=== PATIENT | male | born 1965 | race Caucasian/White ===

== ENCOUNTER 2019-06-18 10:13 | Outpatient (CLI) | payer OTHER, SELFPAY ==
--- NOTE | ~2019-06-18 | XR_ITS ---
EXAMINATION: XR chest 2V DATE: 06/18/2019 11:17 INDICATION: Shortness of breath TECHNIQUE: PA and lateral views of the chest were obtained. COMPARISON: None FINDINGS: Increased interstitial and airspace opacities in the bilateral lower lung zones. Small bilateral pleu ral effusions. No pneumothorax. Cardiomegaly. Mediastinal silhouette is normal. Mild thoracic spondyl osis. IMPRESSION: 1. Opacities in the bilateral lower lung zones most likely congestive heart failure related mild pulm onary edema with differential including less likely pneumonia. 2. Small bilateral pleural effusions. 3. Cardiomegaly. Reviewed, dictated and finalized at location A. IMPRESSION: 1. Opacities in the bilateral lower lung zones most likely congestive heart do lure related mild pulmonary edema with differential including less likely pneum onia. 2. Small bilateral pleural effusions. 3. Cardiomegaly.
--- NOTE | 2019-06-18 10:31 | ECG_ITS ---
Measurements Intervals [place] Rate: 109 P: 57 FL: 144 QRS: -39 QRSD: 97 T: 93 QT: 339 QTc: 457 Interpretive Statements SINUS TACHYCARDIA VENTRICULAR PREMATURE COMPLEX LEFT ATRIAL ENLARGEMENT LEFT AXIS DEVIATION CANNOT RULE OUT SEPTAL INFARCT, AGE INDETERMINATE BORDERLINE ST ABNORMALITY- LATERAL LEADS BASELINE ARTIFACT- II, III ABNORMAL ECG Electronically Signed On 06-18-2019 11:28:04 CDT by Glen Vila D.O.
[2019-06-18 10:36] LABS: Basophils Absolute Auto 0.1 K/mm3 (0.0-0.1); Basophils Percent Auto 0.6 % (0.2-1.2); Eosinophils Absolute Auto 0.2 K/mm3 (0-0.3); Eosinophils Percent Auto 1.6 % (0-4.4); Hematocrit 53.1 % (42.0-52.0); Hemoglobin 17.3 g/dL (14.0-18.0); Immature Granulocyte Absolute 0.03 K/mm3 (0.00-0.031); Immature Granulocyte Percent A 0.3 % (0-0.5); Lymphocytes Percent Auto 25.8 % (18.3-44.2); Mean Corpuscular HGB Conc 32.6 g/dl (32-36); Mean Corpuscular Hemoglobin 30.5 pg (26-34); Mean Corpuscular Volume 93.7 fl (80-100); Mean Platelet Volume 9.8 fl (7.4-10.4); Monocytes Absolute Auto 0.9 K/mm3 (0.1-0.6); Monocytes Percent Auto 8.4 % (2.6-8.5); Neutrophils Absolute Auto 6.4 K/mm3 (1.3-6.7); Neutrophils Percent Auto 63.3 % (45.5-73.1); Platelet Count Result 289 k/mm3 (150-375); Red Blood Count 5.67 M/mm3 (4.6-6.20); Red Cell Distribution Width 14.7 % (11.5-14.5); White Blood Count 10.1 K/mm3 (4.5-10.0)
[2019-06-18 10:50] LABS: Alanine Aminotransferase 43 U/L (4-50); Alkaline Phosphatase 104 U/L (38-126); Aspartate Amino Transferase 30 U/L (17-59); Bilirubin,Total 1.4 mg/dL (0.2-1.3); Blood Urea Nitrogen 13 mg/dL (9-20); Calcium 8.9 mg/dL (8.4-10.2); Carbon Dioxide 26 mmol/L (22-30); Chloride 106 mmol/L (98-107); Cholesterol 235 mg/dL (0-200); Estimated Glomerular Filt Rate > 60; Glucose 126 mg/dL (75-110); HDL Direct 34 mg/dL; Potassium 4.3 mmol/L (3.4-5.0); Sodium 138 mmol/L (137-145); Triglycerides 152 mg/dL (<150)
[2019-06-18 11:00] LABS: LDL Cholesterol Direct 179 mg/dL
[2019-06-18 11:19] LABS: Prostate Specific Antigen 0.6 ng/mL (< OR = 4.0)
== END 2019-06-18 10:14 | disposition home or self-care (01) ==
PROVIDERS: Visit Provider Nurse Practitioner
DX: Z13.220 Encounter for screening for lipoid disorders (principal); Z12.5 Encounter for screening for malignant neoplasm of prostate; Z13.29 Encounter for screening for other suspected endocrine disorder; R06.02 Shortness of breath; R94.31 Abnormal electrocardiogram [ECG] [EKG]; J90 Pleural effusion, not elsewhere classified; I51.7 Cardiomegaly
CPT/HCPCS: 36415; 71046; 80053; 80061; 84153; 85025; 93005; G0103

== ENCOUNTER 2019-06-25 09:38 | Outpatient (CLI) | payer OTHER, SELFPAY ==
--- NOTE | ~2019-06-25 | NM_ITS ---
EXAMINATION: NM susan stress w perfusion DATE: 06/25/2019 16:00 CDT INDICATION: Dyspnea. TECHNIQUE: Rest images were obtained following intravenous administration of 11 mCi Tc99m tetrofosmin (Myoview). The patient was infused intravenously with Lexiscan (regadenoson). Then, 31.4 mCi Tc99m t etrofosmin (Myoview) was administered intravenously, and stress images were obtained. Data was recons tructed into short axis and horizontal and vertical long axis SPECT images. Gated SPECT images were a lso obtained. COMPARISON: None. FINDINGS: There is no definite reversible or fixed perfusion abnormality to suggest ischemia or infar ction. There is globally decreased wall motion with left ventricular enlargement. Left ventricular ejection fraction measures 19%. IMPRESSION: 1. No definite ischemia or infarct. 2. There is globally decreased wall motion with left ventricular enlargement. Left ventricular eject ion fraction measures 19%. Reviewed, dictated and finalized at location A. IMPRESSION: 1. No definite ischemia or infarct. 2. There is globally decreased wall motion with left ventricular enlargement. Left ventricular ejection fraction measures 19%.
--- NOTE | 2019-06-25 10:57 | ECHO_ITS ---
Patient Info Name: Carson Barton Age: 54 years : 1965 Gender: Male Ht: 65 in Wt: 223 lbs BSA: 2.20 m2 HR: 85 bpm BP: 152 / 111 mmHg Technical Quality: Good Exam Date: 06/25/2019 12:57 PM Exam Location: [facility] Patient Status: Outpatient Admit Date: 06/25/2019 Staff Ordering Physician: Glen Vila DO Loss Prevention Consultant: Bharathi Stanton RDCS, RT Attending Provider: Glen Vila DO Referring Physician: Julito ANTHONY; Exam Type: CA echo dop color flow w con Study Info Indications R06.02 - Shortness of breath Complete two-dimensional, color flow and Doppler transthoracic echocardiogram is performed. Summary 1. Left ventricular chamber dimension is moderately enlarged. 2. Left ventricular systolic function is severely reduced, estimated at 20-25%. 3. There is mildly increased left ventricular wall thickness. 4. The left ventricular diastolic function is grade IV diastolic dysfunction. 5. E/e' 14 is mildly elevated. 6. Global longitudinal strain is abnormal at -5.8%. 7. Right ventricular chamber dimension is mildly enlarged. 8. Left atrial chamber dimension is mildly enlarged. 9. There is mild aortic valve sclerosis. 10. There is mild mitral valve regurgitation. 11. There is trace pulmonic regurgitation. 12. Dilated inferior vena cava with >50% collapse upon inspiration consistent with elevated right atrial pressure, 10 mmHg. 13. There is trivial pericardial effusion. Left Ventricle E/e' 14 is mildly elevated. Global longitudinal strain is abnormal at -5.8%. Left ventricular chamber dimension is moderately enlarged. Left ventricular systolic function is severely reduced, estimated at 20-25%. There is mildly increased left ventricular wall thickness. The left ventricular diastolic function is grade IV diastolic dysfunction. Right Ventricle Right ventricular systolic function is normal based on a normal TAPSE at 1.9 cm.. Right ventricular chamber dimension is mildly enlarged. Left Atria Left atrial chamber dimension is mildly enlarged. Right Atria Right atrial chamber dimension is normal. Aortic Valve The aortic valve is trileaflet. There is mild aortic valve sclerosis. There is no aortic valve stenosis. There is no aortic valve regurgitation. Pulmonic Valve There is trace pulmonic regurgitation. Mitral Valve There is no mitral valve stenosis. There is mild mitral valve regurgitation. Tricuspid Valve There is no tricuspid valve regurgitation. Pericardium/Pleural There is trivial pericardial effusion. Inferior Vena Cava Dilated inferior vena cava with >50% collapse upon inspiration consistent with elevated right atrial pressure, 10 mmHg. Aorta The aortic root size at the sinus of Valsalva is normal. Left Ventricular Outflow Tract Name Value Normal LVOT 2D LVOT Diameter 2.11 cm LVOT Doppler LVOT Peak Velocity 89.69 cm/s LVOT Peak Gradient 3 mmHg LVOT Mean Gradient 2 mmHg LVOT VTI 12.23 cm LVOT VTI/AV VTI Ratio 0.71
--- NOTE | 2019-06-25 10:57 | EST_ITS ---
Patient Info Name: Carson Barton Age: 54 years : 1965 Gender: Male Ht: 65 in Wt: 223 lbs BSA: 2.20 m2 Exam Date: 06/25/2019 11:47 AM Exam Location: [facility] Patient Status: Outpatient Admit Date: 06/25/2019 Staff Ordering Physician: Glen Vila DO Attending Provider: Glen Vila DO Exercise Technologist: Joana Spring RDCS Exercise Physician: Glen Vila DO Exam Type: CA stress susan w NM Study Info Indications R94.31 - Abnormal electrocardiogram ECG EKG A regadenoson stress test was performed. Summary 1. 1. Negative lexiscan stress test for ischemic ST changes by ECG criteria. 2. 2. Baseline hypertension. 3. 3. Nuclear scan to follow and will be reported separately. Please correlate with it. 4. 4. Patient informed of the above results. Protocol: Lexiscan Stress ECG Details Stage: REST Duration (min): 6 min : 46 sec HR (bpm): 88 SBP (mmHg): 160 DBP (mmHg): 95 Stage: REST Duration (min): 13 min : 47 sec HR (bpm): 88 SBP (mmHg): 160 DBP (mmHg): 95 Stage: STAGE 1 Duration (min): 0 min : 59 sec HR (bpm): 90 SBP (mmHg): 185 DBP (mmHg): 97 Stage: RECOVERY Duration (min): 1 min : 0 sec HR (bpm): 91 SBP (mmHg): 168 DBP (mmHg): 101 Stage: RECOVERY Duration (min): 2 min : 0 sec HR (bpm): 90 SBP (mmHg): 168 DBP (mmHg): 101 Stage: RECOVERY Duration (min): 3 min : 0 sec HR (bpm): 90 SBP (mmHg): 157 DBP (mmHg): 100 Stage: RECOVERY Duration (min): 3 min : 3 sec HR (bpm): 90 SBP (mmHg): 157 DBP (mmHg): 100 Rest HR: 88 bpm Peak HR: 94 bpm Rest Sys BP: 160 mmHg Peak Sys BP: 185 mmHg Max Pred HR: 168 bpm % Max Pred HR: 56 % Target HR: 143 bpm Max RPP: 17,390 bpm*mmHg Termination Reason: Completed protocol Cardiac Symptoms: Shortness of breath Total Time: 1 min : 0 sec Rest Chanel BP: 95 mmHg Peak Chanel BP: 97 mmHg Total Dose: 0.4 mg Resting ECG Sinus rhythm, IRBBB, cannot r/o septal infarct, age indeterminate, borderline T wave in inf/lat leads. Stress ECG No ST changes. Arrhythmias None. Report Signatures
== END 2019-06-25 09:39 | disposition home or self-care (01) ==
PROVIDERS: PCP Internal Medicine; Visit Provider Internal Medicine Cardiovascular Disease
DX: R06.00 Dyspnea, unspecified (principal); I51.7 Cardiomegaly
CPT/HCPCS: 78452; 93017; A9502; C8929; J2785

== ENCOUNTER → 2021-06-05 14:59 | Outpatient (CLI) | payer OTHER, SELFPAY ==
--- NOTE | ~2021-06-05 | CT_ITS ---
EXAMINATION: CT abdomen pelvis wo/w con EXAM DATE: 06/05/2021 15:46 INDICATION: R31.9 - Hematuria, unspecified. TECHNIQUE: Spiral CT of the abdomen and pelvis was performed without contrast. The patient was then injected with small bolus intravenous Omnipaque 350, followed by delay of approximately 10 minutes to allow collecting system to opacify. A post contrast scan abdomen and pelvis was performed during inj ection of remaining contrast. A total of 130 cc intravenous contrast was administered. The dose-osiel th product (DLP) for this examination was 1936.47 mGy-cm. The exposure was tailored according to pat ient size (auto mA exposure control), and iterative reconstruction (ASIR) was used as additional dose reduction technique. There is no prior study for comparison. FINDINGS: There is 3 mm left inferior calyceal stone. No ureteral stones or hydronephrosis. There i s a right renal peripelvic 2.4 cm lesion, Hounsfield units on pre and postcontrast images are consist ent with hemorrhagic cyst. There is small region of renal cortical scarring superior pole of the left kidney. Mild nonspecific right perinephric fat stranding. The kidneys enhance symmetrically. The calyces and opacified portions of ureters are unremarkable, without filling defects or focal suspicio us strictures. The bladder is unremarkable. The prostate is unremarkable. The liver, spleen, adrenal glands and pancreas are unremarkable. Gallbladder is unremarkable. No bi liary obstruction. There is no retroperitoneal or pelvic lymphadenopathy. There is mild scattered arteriosclerotic disease. The appendix is normal. The stomach and small bowel are unremarkable. There is expected amount of c olonic stool. No free intraperitoneal gas. The heart is normal in size. There are no pericardial or pleural effusions. The lung bases are unremarkable. There are no osteoblastic or osteolytic les ions identified. IMPRESSION: 1. Right renal peripelvic lesion, density and enhancement characteristics consistent with hemorrhagi c cyst. Mild nonspecific right perinephric fat stranding. Consider 6 month follow-up ultrasound or CT . 2. Punctate left nephrolithiasis. Small region left renal cortical scarring. 3. Mild sigmoid diverticulosis. Reviewed, dictated and finalized at location B. IMPRESSION: 1. Right renal peripelvic lesion, density and enhancement characteristics cons istent with hemorrhagic cyst. Mild nonspecific right perinephric fat stranding. Consider 6 month follow-up ultrasound or CT. 2. Punctate left nephrolithiasis. Small region left renal cortical scarring. 3. Mild sigmoid diverticulosis.
[2021-06-05 15:23] LABS: Estimated Glomerular Filt Rate > 60
== END ==
PROVIDERS: PCP Internal Medicine; Visit Provider Clinical Nurse Specialist
DX: R31.9 Hematuria, unspecified (principal); K57.30 Diverticulosis of large intestine without perforation or abscess without bleeding; N20.0 Calculus of kidney
CPT/HCPCS: 74178; Q9967

== ENCOUNTER → 2023-01-31 08:21 | Outpatient (CLI) | payer OTHER, SELFPAY ==
--- NOTE | ~2023-01-31 | XR_ITS ---
EXAMINATION: XR chest 2V 01/31/2023 08:53 INDICATION: Wheezing. Hypertension. PROCEDURE: 2 view chest COMPARISON: 06/18/2019 FINDINGS: The lungs are clear. The cardiomediastinal silhouette is within normal limits. There are no pleural effusions. There is no pneumothorax suspected. IMPRESSION: 1: NO ACUTE CARDIOPULMONARY DISEASE. Reviewed, dictated and finalized at location B. 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
== END ==
PROVIDERS: PCP Clinical Nurse Specialist; Visit Provider Nurse Practitioner Family
DX: R06.2 Wheezing (principal)
CPT/HCPCS: 71046